=== PATIENT | female | born 1945 | race African-American/Black ===

== ENCOUNTER 2016-09-26 14:50 | Emergency (ER) | payer MEDICARE, OTHER ==
[~2016-09-26] VITALS: Ht 157.5 cm; Wt 45.0 kg
[~2016-09-26 14:50] MED LIST: AMLO5 PO; BENA20 PO; KCL20 PO; ROBA750T3 PO
[2016-09-26 14:52] VITALS: BP 148/73; PULSE 103; RESP 14; TEMP 98.7; O2SAT 97
[2016-09-26] MEDS ORDERED: CLOT1CRE6 TOPICAL (17:39)
--- NOTE | 2016-09-26 17:39 | PD ---
HPI Chief Complaint: Skin Problem Time Seen by Provider: 17:22 Travel History International Travel<30 days: No Contact w/Intl Traveler<30days: No Traveled to known affect area: No History of Present Illness HPI 71-year-old female presents to the emergency room for evaluation of skin rash to bilateral lower feet. Patient states started about 2 weeks ago. It is occasionally itchy. Mildly tender to palpation. She has not been applying anything to the area. She denies history of diabetes. States she takes her blood sugars almost daily and usually range between 90 and low 100s. Occasionally high 100s. She is not on any medication for diabetes. PFSH Past Medical History Arthritis: Yes Asthma: No Autoimmune Disease: No Blood Disorders: No Anxiety: No Depression: Yes Heart Rhythm Problems: No Cancer: No Cardiovascular Problems: No High Cholesterol: No Chemotherapy: No Chest Pain: No Congestive Heart Failure: No COPD: No Cerebrovascular Accident: No Diabetes: No Diminished Hearing: No Endocrine: No Gastrointestinal Disorders: No GERD: No Glaucoma: No Genitourinary: No Headaches: Yes Hepatitis: No Hiatal Hernia: No Hypertension: Yes Immune Disorder: No Kidney Stones: No Musculoskeletal: No Neurologic: No Psychiatric: No Respiratory: No Migraines: No Myocardial Infarction: No Radiation Therapy: No Renal Failure: No Seizures: No Sickle Cell Disease: No Sleep Apnea: No Thyroid Disease: No Ulcer: No : 8 Para: 5 Tubal Ligation: Yes Past Surgical History Abdominal Surgery: No AICD: No Appendectomy: No Arteriovenous Shunt: No Cardiac Surgery: No Cholecystectomy: No Ear Surgery: No Endocrine Surgery: No Eye Surgery: No Genitourinary Surgery: Yes (BOWEL OBSTRUCTION) Gynecologic Surgery: Yes (TOTAL ABDOMINAL HYSTERECTOMY) Hysterectomy: Yes (PARTIAL) Insulin Pump: No Joint Replacement: No Neurologic Surgery: No Oral Surgery: No Pacemaker: No Thoracic Surgery: No Other Surgery: Yes Social History Alcohol Use: No Tobacco Use: Yes (1/2 PER DAY) Substance Use: No Allergies-Medications (Allergen,Severity, Reaction): Coded Allergies: No Known Allergies (Verified , 09/26/16) Reported Meds & Prescriptions Reported Meds & Active Scripts Active Robaxin-750 (Methocarbamol) 750 Mg Tab 750 Mg PO QID PRN FOR PAIN Reported Kcl 20 Meq Tab (Potassium Chloride) 20 Meq Tabcr 20 Meq PO BID Lotensin 20 mg (Benazepril HCl) 20 Mg Tab 20 Mg PO DAILY Norvasc (Amlodipine Besylate) 5 Mg Tab 5 Mg PO DAILY Review of Systems Except as stated in HPI: all other systems reviewed are Neg Physical Exam Narrative GENERAL: Well-nourished, well-developed female in no acute distress. Afebrile. Ambulatory. SKIN: Warm and dry. Round, scaly rash to bilateral plantar feet. No impetiginization. No erythema or drainage. Mildly tender to palpation. Distal sensation intact. Less than 2 second capillary refill distally in the feet. HEAD: Normocephalic. EYES: No scleral icterus. No injection or drainage. NECK: Supple, trachea midline. No JVD or lymphadenopathy. Data Data Last Documented VS Vital Signs Date Time Temp Pulse Resp B/P Pulse Ox O2 Delivery O2 Flow Rate FiO2 09/26/16 14:52 98.7 103 14 148/73 97 Room Air MDM Medical Decision Making Medical Screen Exam Complete: Yes Emergency Medical Condition: Yes Medical Record Reviewed: Yes Differential Diagnosis Tinea pedis versus diabetic foot ulcer versus psoriasis Narrative Course 71-year-old female presents to the emergency room for evaluation of bilateral round, scaly plaques to the plantar surfaces of her feet. Patient denies being diabetic. There is no impetiginization, erythema, or drainage. History and physical exam consistent with tinea pedis. Patient discharged with clotrimazole and told to follow up with mud car worker for long-term management and recheck of lesions; she also needs her nails trimmed. Patient understands and agrees to this plan. Diagnosis Primary Impression: Tinea pedis Qualified Code: B35.3 - Tinea pedis of both feet Referrals: Mustapha Chester DPM Patient Instructions: General Instructions, Tinea Pedis (ED) Additional Instructions: Rest and drink plenty of fluids. Apply clotrimazole as directed for one week. Follow-up with a primary care physician. Return to the emergency room for worsening symptoms. Med/Other Pt SpecificInfo: Prescription(s) given Disposition: 01 DISCHARGE HOME Condition: Stable Eufemia Quispe Sep 26, 2016 17:39
[2016-09-26 17:43] VITALS: PULSE 84
[2016-10-10] MEDS ORDERED: AMLO5 PO (10:41)
[2016-10-10] MEDS ORDERED: LOTE20TA PO (10:41)
[2016-10-10] MEDS ORDERED: ROBA750T PO (10:41)
[2016-10-10] MEDS ORDERED: POTA10TA8 PO (10:41)
== END 2016-09-26 17:55 | disposition home or self-care (01) ==
LOC: NEPB 14:50
DX: B35.3 Tinea pedis (principal); I10 Essential (primary) hypertension; Z72.0 Tobacco use; Z87.39 Personal history of other diseases of the musculoskeletal system and connective tissue; Z86.59 Personal history of other mental and behavioral disorders
CPT/HCPCS: 99282

== ENCOUNTER 2017-04-26 23:49 | Emergency (ER) | payer MEDICARE, OTHER ==
[~2017-04-26 23:49] MED LIST changes: -BENA20 PO; +CLOT1CRE6 TOPICAL; -KCL20 PO; +LOTE20TA PO; +POTA10TA8 PO; +ROBA750T PO; -ROBA750T3 PO
[2017-04-26 23:51] VITALS: BP 125/67; PULSE 92; RESP 16; TEMP 98.4; O2SAT 97
[2017-04-27] MEDS ORDERED: HYDR-2376 PO (00:24)
[2017-04-27] MEDS ORDERED: SOMA350T PO (00:24)
[2017-04-27 02:24] LABS: BLOOD, URINE NEG (NEG); COMMENT (UR) CULT NOT INDICATED; CULTURE IF INDICATED CULT NOT INDICATED; GLUCOSE,URINE NEG (NEG); HYALINE CAST, URINE 21 /lpf (RARE); KETONE, URINE TRACE mg/dL (NEG); MUCUS URINE FEW /lpf (OCC); NITRITE,URINE NEG (NEG); SQUAMOUS EPITHELIAL CELL URINE 1 /hpf (0-5); URINE COLOR YELLOW (YELLW/STRAW)
[2017-04-27 02:24] LABS: HEMATOCRIT 32.6 % (35.0-46.0); MEAN CELL VOLUME 86.6 FL (80.0-100.0); MEAN CORPUSCULAR HEMOGLOBIN 28.2 PG (27.0-34.0); MEAN CORPUSCULAR HGB CONC 32.5 % (32.0-36.0); PLATELET COUNT 385 TH/MM3 (150-450); RED BLOOD COUNT 3.77 MIL/MM3 (4.00-5.30); RED CELL DISTRIBUTION WIDTH 17.9 % (11.6-17.2)
[2017-04-27 02:25] LABS: HEMO FLAGS AUTO DIFF
--- NOTE | 2017-04-27 02:35 | PD ---
HPI Chief Complaint: Complaint Time Seen by Provider: 00:22 Travel History International Travel<30 days: No Contact w/Intl Traveler<30days: No Traveled to known affect area: No History of Present Illness HPI The patient 72 years old. She arrives complaining of difficulty urinating and decreased urination overall. She bulging/mass-type protrusion from the vaginal introitus seems to come and go. It is painless. She also complains of a umbilical hernia which is reducible. No vomiting. No fever. Severity moderate. Timing is intermittent. PFSH Past Medical History Anemia: Yes Arthritis: Yes Asthma: No Autoimmune Disease: No Blood Disorders: No Anxiety: No Depression: Yes Heart Rhythm Problems: No Cancer: No Cardiovascular Problems: No High Cholesterol: Yes Chemotherapy: No Chest Pain: No Congestive Heart Failure: No COPD: No Cerebrovascular Accident: No Diabetes: No Diminished Hearing: No Endocrine: No Gastrointestinal Disorders: No GERD: No Glaucoma: No Genitourinary: No Headaches: Yes Hepatitis: No Hiatal Hernia: No Hypertension: Yes Immune Disorder: No Kidney Stones: No Musculoskeletal: No Neurologic: No Psychiatric: No Respiratory: No Immunizations Current: Yes Migraines: No Myocardial Infarction: No Radiation Therapy: No Renal Failure: No Seizures: No Sickle Cell Disease: No Sleep Apnea: No Thyroid Disease: No Ulcer: No Tetanus Vaccination: Unknown ?: Not : 8 Para: 5 Tubal Ligation: Yes Past Surgical History Abdominal Surgery: No AICD: No Appendectomy: No Arteriovenous Shunt: No Cardiac Surgery: No Cholecystectomy: No Ear Surgery: No Endocrine Surgery: No Eye Surgery: No Genitourinary Surgery: Yes (BOWEL OBSTRUCTION) Gynecologic Surgery: Yes (TOTAL ABDOMINAL HYSTERECTOMY) Hysterectomy: Yes (PARTIAL) Insulin Pump: No Joint Replacement: No Neurologic Surgery: No Oral Surgery: No Pacemaker: No Thoracic Surgery: No Other Surgery: Yes Social History Alcohol Use: No Tobacco Use: Yes (1/2 PER DAY) Substance Use: No Allergies-Medications (Allergen,Severity, Reaction): Coded Allergies: No Known Allergies (Verified , 04/27/17) Reported Meds & Prescriptions Reported Meds & Active Scripts Active Clotrimazole Anti-Fungal Topical (Clotrimazole) 1% Cream 1 Applic TOPICAL Q12HR Reported Hydrocodone-Acetaminophen 7.5-300 Mg Tab 1 Tab PO Q4H PRN Soma (Carisoprodol) 350 Mg Tab 350 Mg PO BID PRN Norvasc (Amlodipine Besylate) 5 Mg Tab 5 Mg PO DAILY Review of Systems Except as stated in HPI: all other systems reviewed are Neg Physical Exam Narrative GENERAL: 72-year-old female well-nourished developed PELVIC: External genitalia normal. Vaginal mucosa appears normal. There does appear to be minimal protrusion of the vaginal mucosa concern for possible urinary bladder prolapse. SKIN: Focused skin assessment warm/dry. HEAD: Atraumatic. Normocephalic. EYES: Pupils equal and round. No scleral icterus. No injection or drainage. ENT: No nasal bleeding or discharge. Mucous membranes pink and moist. NECK: Trachea midline. No JVD. CARDIOVASCULAR: Regular rate and rhythm. No murmur appreciated. RESPIRATORY: No accessory muscle use. Clear to auscultation. Breath sounds equal bilaterally. GASTROINTESTINAL: There is a reducible umbilical hernia. The abdomen is soft generally MUSCULOSKELETAL: No obvious deformities. No clubbing. No cyanosis. No edema. NEUROLOGICAL: Awake and alert. No obvious cranial nerve deficits. Motor grossly within normal limits. Normal speech. PSYCHIATRIC: Appropriate mood and affect; insight and judgment normal. Data Data Last Documented VS Vital Signs Date Time Temp Pulse Resp B/P Pulse Ox O2 Delivery O2 Flow Rate FiO2 04/27/17 00:16 18 04/26/17 23:51 98.4 92 125/67 97 Room Air Vital signs reviewed Orders Urinalysis - C+S If Indicated (04/27/17 00:56) Complete Blood Count With Diff (04/27/17 01:49) Basic Metabolic Panel (Bmp) (04/27/17 01:49) Potassium Chloride (Kcl) (04/27/17 03:15) Labs Laboratory Tests Test 04/27/17 04/27/17 01:30 01:50 Urine Color YELLOW Urine Turbidity CLEAR Urine pH 6.0 Urine Specific [place] 1.037 Urine Protein 30 mg/dL Urine Glucose (UA) NEG mg/dL Urine Ketones TRACE mg/dL Urine Occult Blood NEG Urine Nitrite NEG Urine Bilirubin NEG Urine Urobilinogen 2.0 MG/DL Urine Leukocyte Esterase NEG Urine RBC 3 /hpf Urine WBC 1 /hpf Urine Squamous Epithelial 1 /hpf Cells Urine Hyaline Casts 21 /lpf Urine Mucus FEW /lpf Microscopic Urinalysis Comment CULT NOT INDICATED White Blood Count 10.0 TH/MM3 Red Blood Count 3.77 MIL/MM3 Hemoglobin 10.6 GM/DL Hematocrit 32.6 % Mean Corpuscular Volume 86.6 FL Mean Corpuscular Hemoglobin 28.2 PG Mean Corpuscular Hemoglobin 32.5 % Concent Red Cell Distribution Width 17.9 % Platelet Count 385 TH/MM3 Mean Platelet Volume 9.6 FL Neutrophils (%) (Auto) % Lymphocytes (%) (Auto) % Monocytes (%) (Auto) % Eosinophils (%) (Auto) % Basophils (%) (Auto) % Neutrophils # (Auto) TH/MM3 Lymphocytes # (Auto) TH/MM3 Monocytes # (Auto) TH/MM3 Eosinophils # (Auto) TH/MM3 Basophils # (Auto) TH/MM3 CBC Comment AUTO DIFF Sodium Level 145 MEQ/L Potassium Level 2.7 MEQ/L Chloride Level 107 MEQ/L Carbon Dioxide Level 31.5 MEQ/L Anion Gap 7 MEQ/L Blood Urea Nitrogen 12 MG/DL Creatinine 0.97 MG/DL Estimat Glomerular Filtration 69 ML/MIN Rate Random Glucose 90 MG/DL Calcium Level 9.1 MG/DL [facility] Medical Decision Making Medical Screen Exam Complete: Yes Emergency Medical Condition: Yes Medical Record Reviewed: Yes Differential Diagnosis Bladder prolapse, UTI, renal failure, malignancy Narrative Course CBC & BMP Diagram 04/27/17 01:50 UA: no UTI 310AM: pt resting comfortably, outpatient follow up plan discussed, pt agreeable with plan, all questions answered Diagnosis Primary Impression: Female bladder prolapse Additional Impression: Hypokalemia Referrals: Skye Christy MD 2 days Additional Instructions: You have a choice when it comes to health care, and we are glad that you chose [facility]. Hopefully, we have met your expectations on today's visit. You are welcome to return to [facility] at any time, as we are committed to meeting the health care needs of our community. Med/Other Pt SpecificInfo: No Change to Meds Disposition: DISCHARGE HOME Condition: Stable Ke Christopher MD Apr 27, 2017 02:35
[2017-04-27 02:58] LABS: BICARBONATE 31.5 MEQ/L (21.0-32.0)
[2017-04-27 03:01] LABS: POTASSIUM 2.7 MEQ/L (3.5-5.1)
[2017-04-27 03:08] LABS: BANDS 3 % (0-6); BASOPHILS 3 % (0-2); EOSINOPHILS 8 % (0-4); NEUTROPHIL # MANUAL DIFF 6.3 TH/MM3 (1.8-7.7); POLYS (SEG NEUTROPHILS) 60 % (16-70); SCAN/DIFF FINAL DIFF MANUAL; WBC DIFF SAMPLE 100
[2017-04-27 03:09] LABS: PLATELET ESTIMATE SMEAR NORMAL (NORMAL); PLATELET MORPHOLOGY NORMAL (NORMAL)
[2017-04-27] MEDS ORDERED: POTASSIUM CHLORIDE 20 MEQ CONTROLLED RELEASE TAB PO ONE (03:15)
== END 2017-04-27 03:51 | disposition home or self-care (01) ==
LOC: NEPE 23:49
DX: N81.10 Cystocele, unspecified (principal); E87.6 Hypokalemia; F17.210 Nicotine dependence, cigarettes, uncomplicated; I10 Essential (primary) hypertension; E78.00 Pure hypercholesterolemia, unspecified
CPT/HCPCS: 80048; 81001; 85007; 85027; 99283

== ENCOUNTER 2017-12-03 11:59 | Emergency (ER) | payer MEDICARE, OTHER ==
[~2017-12-03] VITALS: Ht 157.5 cm; Wt 48.0 kg
[~2017-12-03 11:59] MED LIST changes: +HYDR-2376 PO; -LOTE20TA PO; -POTA10TA8 PO; -ROBA750T PO; +SOMA350T PO
[2017-12-03 12:02] VITALS: BP 178/82; PULSE 85; RESP 20; TEMP 99; O2SAT 100
[2017-12-03] MEDS ORDERED: ACETAMINOPHEN/HYDROcodone 325 MG/5 MG TAB PO ONE (14:00)
--- NOTE | 2017-12-03 14:24 | RADRPT ---
EXAM DATE/TIME: 12/03/2017 14:10 [place] COMPARISON: No previous studies available for comparison. INDICATIONS : Pain from impact with object. MEDICAL HISTORY : None. SURGICAL HISTORY : None. ENCOUNTER: Initial ACUITY: 2 weeks PAIN SCORE: 5/10 LOCATION: Right lateral foot. FINDINGS: There are mildly displaced fractures through the distal second and third metatarsals. Bones osteopeni c. Hallux valgus deformity present. CONCLUSION: 1. Mildly displaced fractures distal second and third metatarsals. Fractures appear subacute. Hallux valgus. Osteopenia. Christiano Ye MD on December 03, 2017 at 14:21 Board Certified Radiologist. This report was verified electronically.
--- NOTE | 2017-12-03 14:30 | PD ---
HPI Chief Complaint: Injury Time Seen by Provider: 13:46 Travel History International Travel<30 days: No Contact w/Intl Traveler<30days: No Traveled to known affect area: No History of Present Illness HPI 72-year-old female arrives with complaint of right foot pain. Patient reports knocking the foot against a piece of wood about 1 week prior. Since then she has had constant pain worse with ambulation and palpation. No additional injury to report. PFSH Past Medical History Anemia: Yes Arthritis: Yes Asthma: No Autoimmune Disease: No Blood Disorders: No Anxiety: No Depression: Yes Heart Rhythm Problems: No Cancer: No Cardiovascular Problems: No High Cholesterol: Yes Chemotherapy: No Chest Pain: No Congestive Heart Failure: No COPD: No Cerebrovascular Accident: No Diabetes: No Diminished Hearing: No Endocrine: No Gastrointestinal Disorders: No GERD: No Glaucoma: No Genitourinary: No Headaches: Yes Hepatitis: No Hiatal Hernia: No Hypertension: Yes Immune Disorder: No Kidney Stones: No Musculoskeletal: No Neurologic: No Psychiatric: No Respiratory: No Immunizations Current: Yes Migraines: No Myocardial Infarction: No Radiation Therapy: No Renal Failure: No Seizures: No Sickle Cell Disease: No Sleep Apnea: No Thyroid Disease: No Ulcer: No : 8 Para: 5 Tubal Ligation: Yes Past Surgical History Abdominal Surgery: No AICD: No Appendectomy: No Arteriovenous Shunt: No Cardiac Surgery: No Cholecystectomy: No Ear Surgery: No Endocrine Surgery: No Eye Surgery: No Genitourinary Surgery: Yes (BOWEL OBSTRUCTION) Gynecologic Surgery: Yes (TOTAL ABDOMINAL HYSTERECTOMY) Hysterectomy: Yes (PARTIAL) Insulin Pump: No Joint Replacement: No Neurologic Surgery: No Oral Surgery: No Pacemaker: No Thoracic Surgery: No Other Surgery: Yes Social History Alcohol Use: No Tobacco Use: Yes (1/2 PER DAY) Substance Use: No Allergies-Medications (Allergen,Severity, Reaction): Coded Allergies: No Known Allergies (Verified Adverse Reaction, Unknown, 12/03/17) Reported Meds & Prescriptions Reported Meds & Active Scripts Active Hydrocodone-Acetaminophen 7.5-300 Mg Tab 1 Tab PO Q4H PRN Clotrimazole Anti-Fungal Topical (Clotrimazole) 1% Cream 1 Applic TOPICAL Q12HR Reported Soma (Carisoprodol) 350 Mg Tab 350 Mg PO BID PRN Norvasc (Amlodipine Besylate) 5 Mg Tab 5 Mg PO DAILY Review of Systems General / Constitutional: No: Fever HENT: No: Sore Throat Respiratory: No: Other Gastrointestinal: No: Loss of Appetite Genitourinary: No: Incontinence Physical Exam Narrative GENERAL: 72-year-old female pleasant well-nourished Vital Signs Date Time Temp Pulse Resp B/P (MAP) Pulse Ox O2 Delivery O2 Flow Rate FiO2 12/03/17 12:02 99.0 85 20 178/82 (114) 100 SKIN: Warm and dry. HEAD: Normocephalic. EYES: No scleral icterus. No injection or drainage. NECK: Supple, trachea midline. No JVD or lymphadenopathy. CARDIOVASCULAR: There is a palpable dorsalis pedis pulse in the right and 2+ in the left dorsalis pedis RESPIRATORY: Breath sounds equal bilaterally. No accessory muscle use. GASTROINTESTINAL: Abdomen soft, non-tender, nondistended. MUSCULOSKELETAL: Tenderness palpation on the dorsal aspect of the right foot towards the heads of the second third and fourth metatarsals. No tenderness about the malleoli. BACK: Nontender without obvious deformity. No CVA tenderness. Data Data Last Documented VS Vital Signs Date Time Temp Pulse Resp B/P (MAP) Pulse Ox O2 Delivery O2 Flow Rate FiO2 12/03/17 12:02 99.0 85 20 178/82 (114) 100 Orders Orders Foot, Complete ([id number]) (12/03/17 14:00) Ice/Cold Pack (12/03/17 14:00) Acetamin-Hydrocod 325-5 Mg ([place] 5-325 (12/03/17 14:00) Ed Discharge Order (12/03/17 14:18) Support Splint (12/03/17 14:18) MDM Medical Decision Making Medical Screen Exam Complete: Yes Emergency Medical Condition: Yes Medical Record Reviewed: Yes Differential Diagnosis Fracture, contusion, abrasion, and peripheral artery disease Narrative Course Foot x-ray shows fracture of the metatarsal heads 2 and 3 The patient will go home with hard sole show. she will follow-up with podiatry, Dr Reddy or her architecture drafter this week. Diagnosis Primary Impression: Metatarsal bone fracture Qualified Codes: S92.301A - Fracture of unspecified metatarsal bone(s), right foot, initial encounter for closed fracture Referrals: Peg Reddy DPM 2 days Med/Other Pt SpecificInfo: Prescription(s) given Scripts Hydrocodone-Acetaminophen (Hydrocodone-Acetaminophen) 7.5-300 Mg Tab 1 TAB PO Q4H Y for PAIN, #10 TAB 0 Refills Prov: Ke Christopher MD 12/03/17 Disposition: 01 DISCHARGE HOME Condition: Stable Ke Christopher MD Dec 03, 2017 14:30
[2017-12-03] MEDS ORDERED: HYDR-2376 PO (14:37)
== END 2017-12-03 14:50 | disposition home or self-care (01) ==
LOC: NEPD 11:59
DX: S92.321A Displaced fracture of second metatarsal bone, right foot, initial encounter for closed fracture (principal); S92.331A Displaced fracture of third metatarsal bone, right foot, initial encounter for closed fracture; W22.8XXA Striking against or struck by other objects, initial encounter
CPT/HCPCS: 73630; 99283; L3260

== ENCOUNTER 2018-04-24 19:12 | Observation (INO) ==
[2018-04-24] MEDS ORDERED: Azithromycin Inj 500 MG in Sodium Chlor 0.9% Inj 250 ML IV.SIG ONE (20:37)
[2018-04-24] MEDS ORDERED: Sodium Chlor 0.9% Inj 500 ML IV.SIG ONE (20:37)
--- NOTE | 2018-04-24 20:37 | ED ---
HPI General Chief complaint: Shortness of Breath/Dyspnea Stated complaint: SOB Time Seen by Provider: 04/24/18 20:20 Source: patient Limitations: no limitations History of Present Illness HPI narrative: The patient is a 73 year old female who presents to the [facility] emergency department with a history of shortness of breath that she reports is been progressively getting worse over the last 2 months. She reports that over the last 3 weeks she has had a cough that is been productive of white sputum. The patient reports that she does smoke between 2 and 5 cigarettes per day. She reports that her primary care physician has given her a pro-air inhaler, however it does not seem to help. She denies ever being diagnosed specifically with COPD or asthma. She reports having a diminished appetite associated with this. She reports having nausea and vomiting 2 this past week. She reports that a few days ago she had a fever with a T-max of 101. The patient reports that over the last 2 weeks she has had diarrhea on average 1 time per day. She denies having any blood in her stool or black or tarry stools. She denies having any lower extremity edema, calf pain, or erythema. She denies having any associated chest pain. She reports having a gassy sensation in her abdomen. On review of systems otherwise, the patient denies having any new neck pain (h/o arthritis with chronic neck and back pain) , urinary symptoms, or neurologic symptoms. Related Data Home Medications Medication Instructions Recorded Confirmed amlodipine [Norvasc] 5 mg PO DAILY 04/24/18 04/24/18 [id number]-[id number]-nmvf 1 cap PO Q4H PRN 04/24/18 04/24/18 [Fioricet] carisoprodol [Soma] 350 mg PO QID PRN 04/24/18 04/24/18 ferrous sulfate mg PO DAILY 04/24/18 hydrocodone-acetaminophen 1 tab PO Q4-6H PRN 04/24/18 04/24/18 Allergies Allergy/AdvReac Type Severity Reaction Status Date / Time No Known Allergies Allergy Verified 04/24/18 19:42 Review of Systems ROS Unobtainable All other systems reviewed negative except as stated in HPI [facility] Medical History Medical History Anemia (Acute) COPD (chronic obstructive pulmonary disease) (Acute) History of hysterectomy (Acute) Hypertension (Acute) Surgical History Surgical History History of hernia surgery (Acute) Social History Social History Substance History: No History of Abuse Smoking Status: Current every day smoker Tobacco Type: Cigarettes Cigarettes Per Day: 5 How Often Do You Have a Drink Containing Alcohol: Monthly or less Recent Travel in [facility] within the Last 8 Weeks: No Recent Out of Country Travel within the Last 8 Weeks: No Immunization History Tetanus Immunization: Unsure Hx Influenza Vaccine This Season: No Exam Const General: cooperative, no acute distress and well developed Nutritional Appearance: thin Orientation: alert, awake and oriented x3 HENMT Head: normocephalic and atraumatic Nose: no nasal discharge and no epistaxis Mouth: moist mucous membranes Throat: posterior oropharynx normal and uvula midline Eyes Sclera: normal sclerae Pupils: PERRL Neck Neck: no meningeal signs, trachea midline and no JVD Resp Effort & Inspection: no use of accessory muscles Auscultation: other (No wheezes, rhonchi, or crackles are audible, however the patient does have diminished breath sounds in the right lower lung base.) Cardio Rate: regular rate Rhythm: regular rhythm Heart Sounds: no gallops, no murmurs and no rubs GI Inspection: non-distended Palpation: soft, no hepatosplenomegaly, no guarding, not rigid and nontender Auscultation: normal bowel sounds Back/Spine/Pelvis Back: no CVA tenderness Skin General: dry skin (warm) Neuro General: alert and awake Cranial Nerves: other (No facial asymmetry) Speech: speech normal Motor: no movement abnormalities noted Extrem General: normal to inspection (No calf tenderness on palpation.), no clubbing, no cyanosis and no edema Psych Mood: congruent mood Affect: normal affect Judgment: judgment good Course Initial Documented Vital Signs Temperature 98.8 F 04/24/18 19:42 Pulse Rate 81 04/24/18 19:42 Respiratory Rate 24 04/24/18 19:42 Blood Pressure 161/84 H 04/24/18 19:42 Pulse Oximetry 96 04/24/18 19:42 Last Documented Vital Signs Temperature 98.8 F 04/24/18 19:42 Pulse Rate 77 04/24/18 23:11 Respiratory Rate 18 04/24/18 23:11 Blood Pressure 177/94 H 04/24/18 23:11 Pulse Oximetry 99 04/24/18 23:11 Medical Decision Making MDM Narrative Medical decision making narrative: During the course of the patient's emergency department visit, the patient's history, examination, and differential diagnosis were reviewed with the patient. The patient was placed on a monitor tech with oximetry and frequent blood pressure monitoring. The patient had IV access obtained and blood work sent for analysis. A diagnostic workup was started regarding the patient's shortness of breath, cough, and fever. The patient was initially provided normal saline at 500 mL bolus 1, Zofran ODT , Rocephin 1 g IV, Zithromax 500 IV. Laboratory studies are remarkable for a white count of 7, platelets 429, monocytosis at 11.7, hemoglobin 9.9 which is stable compared to her baseline level of anemia, PT 10.4, PTT 26.4, CMP is remarkable chemistries remarkable for a troponin I of less than 0.02, CPK 100, total bilirubin 0.1, potassium 3.4 , GFR of 81, chloride 109, alk phos 144, albumin 3.3, ALT 8. Urinalysis shows no acute abnormality. Chest x-ray shows no acute findings, tortuous aorta, CTA to rule out PE given the patient's persistent dyspnea on exertion is negative for PE, however a noncalcified 6 mm nodule in the right middle lobe of the lung is noted, recommend noncontrast chest CT for monitoring in 6 months, cardiomegaly with no pulmonary edema, severe underlying emphysema, coronary artery calcifications are also noted. Given the patient's dyspnea on exertion and risk factors for coronary artery disease the patient will be admitted to the chest pain center for rule out serial cardiac enzyme protocol and consideration of stress testing. As the patient is a smoker and no doubt has some underlying component of COPD based on the CT scan findings the patient will be treated with an antibiotic for bronchitis as her symptoms with cough have been ongoing for 3 weeks. The patient is provided a prescription for Zithromax. I explained that further testing and/ or monitoring is indicated based on the patient's history, examination, and/ or laboratory findings. Therefore, I recommended admission for additional evaluation. The patient expressed understanding and was agreeable with this plan. The patient was admitted to the hospital in stable condition and sent to a bed under the care of the [facility]. Differential Diagnosis Differential Diagnosis: Acute coronary syndrome, versus COPD exacerbation, versus bronchitis, versus pneumonia, versus new onset congestive heart failure, versus pulmonary embolism, versus symptomatic anemia Medical Records Medical records reviewed: Yes I reviewed the patient's medical records. Lab Data Lab results reviewed: Yes I reviewed the patient's lab results. Result diagrams: 04/24/18 21:09 04/24/18 21:09 Lab Results 04/24/18 04/24/18 04/24/18 Range/Units 21:09 21:09 21:09 WBC 7.0 (4.0-11.0) th/mm3 RBC 3.66 L (4.00-5.30) mil/mm3 Hgb 9.9 L (11.6-15.3) gm/dL Hct 31.0 L (35.0-46.0) % MCV 84.7 (80.0-100.0) fL MCH 27.1 (27.0-34.0) pg MCHC 32.0 (32.0-36.0) % RDW 20.8 H (11.6-17.2) % Plt Count 429 (150-450) th/mm3 MPV 9.0 (7.0-11.0) fL Neut % (Auto) 46.4 (16.0-70.0) % Lymph % (Auto) 37.6 (9.0-44.0) % [place] % (Auto) 11.7 H (0.0-8.0) % Eos % (Auto) 3.0 (0.0-4.0) % Baso % (Auto) 1.3 (0.0-2.0) % Neut # (Auto) 3.3 (1.8-7.7) th/mm3 Lymph # (Auto) 2.6 (1.0-4.8) th/mm3 [place] # (Auto) 0.8 (0.0-0.9) th/mm3 Eos # (Auto) 0.2 (0.0-0.4) th/mm3 Baso # (Auto) 0.1 (0.0-0.2) th/mm3 WBC Differential . Differential Comment Auto diff final PT 10.4 (9.8-11.6) sec INR 1.0 Ratio APTT 26.4 (24.3-30.1) sec Sodium 142 (136-145) meq/L Potassium 3.4 L (3.5-5.1) meq/L Chloride 109 H (98-107) meq/L Carbon Dioxide 27.4 (21.0-32.0) meq/L Anion Gap 6 (5-15) meq/L BUN 13 (7-18) mg/dL Creatinine 0.84 (0.50-1.00) mg/dL Estimated GFR 81 L (>89) mL/min Random Glucose 78 (74-106) mg/dL Lactic Acid (0.4-2.0) mmol/L Calcium 8.8 (8.5-10.1) mg/dL Magnesium 2.1 (1.5-2.5) mg/dL Total Bilirubin 0.1 L (0.2-1.0) mg/dL AST 15 (15-37) U/L ALT 8 L (10-53) U/L Alkaline Phosphatase 144 H (45-117) U/L Total Creatine Kinase 100 (26-192) U/L Troponin I Less than 0.02 L (0.02-0.05) ng/mL B-Natriuretic Peptide (0-100) pg/mL Total Protein 7.9 (6.4-8.2) g/dL Albumin 3.3 L (3.4-5.0) g/dL Urine Color (Yellw/Straw) Urine Clarity (Clear) Urine pH (5.0-8.5) Ur Specific [place] (1.002-1.035) Urine Protein (Neg-Trace) mg/dL Urine Glucose (UA) (Negative) mg/dL Urine Ketones (Negative) mg/dL Urine Occult Blood (Negative) Urine Nitrate (Negative) Urine Bilirubin (Negative) Urine Urobilinogen (Less than 2) mg/dL Ur Leukocyte Esterase (Negative) Urine RBC (0-3) /hpf Urine WBC (0-5) /hpf Ur Squamous Epith Cells (0-5) /hpf Micro UA Comment Urine Culture Comments 04/24/18 04/24/18 04/24/18 Range/Units 21:09 21:09 21:25 WBC (4.0-11.0) th/mm3 RBC (4.00-5.30) mil/mm3 Hgb (11.6-15.3) gm/dL Hct (35.0-46.0) % MCV (80.0-100.0) fL MCH (27.0-34.0) pg MCHC (32.0-36.0) % RDW (11.6-17.2) % Plt Count (150-450) th/mm3 MPV (7.0-11.0) fL Neut % (Auto) (16.0-70.0) % Lymph % (Auto) (9.0-44.0) % [place] % (Auto) (0.0-8.0) % Eos % (Auto) (0.0-4.0) % Baso % (Auto) (0.0-2.0) % Neut # (Auto) (1.8-7.7) th/mm3 Lymph # (Auto) (1.0-4.8) th/mm3 [place] # (Auto) (0.0-0.9) th/mm3 Eos # (Auto) (0.0-0.4) th/mm3 Baso # (Auto) (0.0-0.2) th/mm3 WBC Differential Differential Comment PT (9.8-11.6) sec INR Ratio APTT (24.3-30.1) sec Sodium (136-145) meq/L Potassium (3.5-5.1) meq/L Chloride (98-107) meq/L Carbon Dioxide (21.0-32.0) meq/L Anion Gap (5-15) meq/L BUN (7-18) mg/dL Creatinine (0.50-1.00) mg/dL Estimated GFR (>89) mL/min Random Glucose (74-106) mg/dL Lactic Acid 1.2 (0.4-2.0) mmol/L Calcium (8.5-10.1) mg/dL Magnesium (1.5-2.5) mg/dL Total Bilirubin (0.2-1.0) mg/dL AST (15-37) U/L ALT (10-53) U/L Alkaline Phosphatase (45-117) U/L Total Creatine Kinase (26-192) U/L Troponin I (0.02-0.05) ng/mL B-Natriuretic Peptide 84 (0-100) pg/mL Total Protein (6.4-8.2) g/dL Albumin (3.4-5.0) g/dL Urine Color Yellow (Yellw/Straw) Urine Clarity Clear (Clear) Urine pH 6.0 (5.0-8.5) Ur Specific [place] 1.026 (1.002-1.035) Urine Protein Negative (Neg-Trace) mg/dL Urine Glucose (UA) Negative (Negative) mg/dL Urine Ketones Negative (Negative) mg/dL Urine Occult Blood Small H (Negative) Urine Nitrate Negative (Negative) Urine Bilirubin Negative (Negative) Urine Urobilinogen Less than 2 (Less than 2) mg/dL Ur Leukocyte Esterase Negative (Negative) Urine RBC 1 (0-3) /hpf Urine WBC 2 (0-5) /hpf Ur Squamous Epith Cells 1 (0-5) /hpf Micro UA Comment Culture not ind Urine Culture Comments Culture not ind Imaging Data Radiologist's impression: Chest X-Ray 04/24/18 20:37 CONCLUSION: No acute findings. Tortuous aorta. Chest CTA 04/24/18 22:46 CONCLUSION: 1. No evidence of pulmonary embolism. 2. Noncalcified 6 mm nodule in the right middle lobe. The patient is at high risk and a follow-up noncontrast chest CT is recommended in 6 months according to guidelines. 3. Cardiomegaly with no pulmonary edema. 4. Severe underlying emphysema. 5. Coronary artery calcifications. ECG Data Attestation: I personally reviewed and interpreted this ECG as follows: Interpretation: The patient had an EKG done on arrival. The patient's EKG reveals a sinus rhythm heart rate of 73, QRS duration is 76 ms, QTC [address] segment elevation is noted. T waves are inverted in V1. Discharge Plan Discharge Disposition Patient Disposition: 30 Still Patient Discharge Details Diagnosis: Exertional shortness of breath, Chest pain, rule out acute myocardial infarction Physicians Team ED Provider: Zeinab Scales Primary Care Provider: UNKNOWN, Attending Provider: Ana Del Cid Discharge Interventions Interventions: Vital Signs Last Done: 04/24/18 23:11 Status ED Status: Admitted Observation Patient
--- NOTE | 2018-04-24 21:27 | XR ---
EXAM DATE: 04/24/2018 9:04 PM EDT AGE/SEX: 73 years / Female INDICATIONS: Shortness of breath. CLINICAL DATA: This is the patient's initial encounter. Patient reports that signs and symptoms have been present for 2 weeks and indicates a pain score of 0/10. MEDICAL/SURGICAL HISTORY: Hypertension. Chronic obstructive pulmonary disease. Smoker. None. COMPARISON: No prior exams available for comparison. FINDINGS: A single AP view of the chest demonstrates the lungs to be symmetrically aerated without evidence of mass, infiltrate or effusion. Aorta is tortuous. Mild scoliosis. CONCLUSION: No acute findings. Tortuous aorta. Electronically signed by: Christiano Ye MD 04/24/2018 9:26 PM EDT
[2018-04-24 21:30] LABS: Baso # (Auto) 0.1 th/mm3 (0.0-0.2); Baso % (Auto) 1.3 % (0.0-2.0); Eos # (Auto) 0.2 th/mm3 (0.0-0.4); Hemoglobin 9.9 gm/dL (11.6-15.3); Lymph # (Auto) 2.6 th/mm3 (1.0-4.8); Lymph % (Auto) 37.6 % (9.0-44.0); Mean Corpuscular Hemoglobin 27.1 pg (27.0-34.0); Mean Corpuscular Volume 84.7 fL (80.0-100.0); Mono # (Auto) 0.8 th/mm3 (0.0-0.9); Mono % (Auto) 11.7 % (0.0-8.0); Neut # (Auto) 3.3 th/mm3 (1.8-7.7); Neut % (Auto) 46.4 % (16.0-70.0); Platelet Count 429 th/mm3 (150-450); Red Blood Count 3.66 mil/mm3 (4.00-5.30); Red Cell Distribution Width 20.8 % (11.6-17.2)
[2018-04-24 21:45] LABS: Alanine Aminotransferase 8 U/L (10-53)
[2018-04-24 21:51] LABS: Bilirubin,Urine Negative (Negative); Clarity,Urine Clear (Clear); Color,Urine Yellow (Yellw/Straw); Glucose,Urine (UA) Negative (Negative); Leukocyte Esterase,Urine Negative (Negative); Nitrite,Urine Negative (Negative); Specific Gravity,Urine 1.026 (1.002-1.035); Squamous Epithelial Cell,Urine 1 /hpf (0-5)
[2018-04-24 22:02] LABS: Albumin 3.3 g/dL (3.4-5.0); Alkaline Phosphatase 144 U/L (45-117); Anion Gap 6 meq/L (5-15); Aspartate Aminotransferase 15 U/L (15-37); Blood Urea Nitrogen 13 mg/dL (7-18); Calcium 8.8 mg/dL (8.5-10.1); Carbon Dioxide 27.4 meq/L (21.0-32.0); Chloride 109 meq/L (98-107); Glomerular Filtration Rate 81 mL/min (>89); Glucose,Random 78 mg/dL (74-106); Magnesium 2.1 mg/dL (1.5-2.5); Sodium 142 meq/L (136-145); Total Protein 7.9 g/dL (6.4-8.2)
[2018-04-24 22:10] LABS: Creatine Kinase 100 U/L (26-192); Potassium 3.4 meq/L (3.5-5.1)
[2018-04-24 22:16] LABS: Activated Partial Thrombo Time 26.4 sec (24.3-30.1); Prothrombin Time 10.4 sec (9.8-11.6)
--- NOTE | 2018-04-24 23:38 | CT ---
EXAM DATE: 04/24/2018 11:27 PM EDT AGE/SEX: 73 years / Female INDICATIONS: Shortness of breath. CLINICAL DATA: This is the patient's initial encounter. Patient reports that signs and symptoms have been present for 1 day and indicates a pain score of 0/10. MEDICAL/SURGICAL HISTORY: Anemia. Chronic obstructive pulmonary disease. Hypertension. None. RADIATION DOSE: 5.67 CTDI (mGy) COMPARISON: No prior exams available for comparison. TECHNIQUE: Volumetric scanning was performed using a multi-row detector CT scanner during bolus infu nataly of 75 ml Omnipaque 350 (iohexol) nonionic water-soluble contrast as a single exam dose. The darlyn a was post processed with a variety of visualization algorithms including full volume maximum intensi ty projection and sliding thin slab reformation. Using automated exposure control and adjustment of t he mA and/or kV according to patient size, radiation dose was kept as low as reasonably achievable to obtain optimal diagnostic quality images. DICOM format image data is available electronically for r eview and comparison. FINDINGS: Pulmonary Arteries: No filling defects are seen in the pulmonary arteries out to the subsegmental ve ssels. The left and right pulmonary arteries are normal in diameter. Lung: No infiltrates seen. There is severe underlying emphysema with hyperinflation. There is a 6 mm noncalcified pulmonary nodule in the right middle lobe on image #64. Effusion: None. Mediastinum: No evidence of mediastinal or hilar adenopathy. Coronary artery calcifications are pres ent. There is mild cardiomegaly. Other: The axilla is unremarkable. CONCLUSION: 1. No evidence of pulmonary embolism. 2. Noncalcified 6 mm nodule in the right middle lobe. The patient is at high risk and a follow-up no ncontrast chest CT is recommended in 6 months according to guidelines. 3. Cardiomegaly with no pulmonary edema. 4. Severe underlying emphysema. 5. Coronary artery calcifications. Electronically signed by: Naif Mansfield MD 04/24/2018 11:37 PM EDT
[2018-04-25] MEDS ORDERED: Acetaminophen 325 MG Tablet PO ONE (00:05)
[2018-04-25 02:07] LABS: Creatine Kinase 81 U/L (26-192)
[2018-04-25 06:07] LABS: Creatine Kinase 68 U/L (26-192)
[2018-04-25] MEDS ORDERED: Acetaminophen 500 MG Tablet PO PRN (07:35)
--- NOTE | 2018-04-25 08:35 | P.HPCA ---
History of Present Illness Primary Care Physician: Dr. Gabriela Urban Chief Complaint: Dyspnea History of Present Illness: 73 year old female with history of hypertension, COPD, and current smoker presents to ER for further evaluation of nonexertional dyspnea. Onset 3 weeks. Intermittent fever, productive cough white sputum, no wheezing. Using proair inhaler without relief. Yesterday dyspnea so severe she did not want to exert herself, stating "I just wanted to rest." Denies any accompanying chest discomfort. No nausea, vomiting, or diaphoresis. Denies history of past bronchitis infections. Also would like to be evaluated for left scapula, left mid back, and left sided cervical pain. Onset 2 months ago, increased in severity. Made worse with movement and light touch over area. Reports completing a MRI recently and told to wear a cervical brace which gives some relief. No past cardiac testing. No known coronary artery disease. Family history noncontributory for early onset cardiovascular disease. - Diagnosis (1) Dyspnea, unspecified (2) Bronchitis (3) Tobacco use (4) Pulmonary nodule, right PMFSH - History History Provided By: Patient - Medical History Medical History: Medical History (Last Updated 04/25/18 @ 12:21 by CHERY Braun) History of hysterectomy (Chronic) Anemia COPD (chronic obstructive pulmonary disease) History of hysterectomy Hypertension Hypokalemia - Surgical History Surgical History: Surgical History (Last Reviewed 04/25/18 @ 12:21 by CHERY Braun) History of hernia surgery - Tobacco History Second Hand Smoke Exposure: Yes Tobacco Use In Past 30 Days: Yes Smoking Status: Current every day smoker Tobacco Type: Cigarettes Packs Per Day: 0.5 (0.5-1 pack daily) - Alcohol History How Often Do You Have a Drink Containing Alcohol: Monthly or less - Substance Use History Substance History: No History of Abuse - Travel History History of Recent Travel: No Recent Travel in the [place] Within the Last 8 Weeks: No Recent Travel Out of the Country Within the Last 8 Weeks: No - Immunization History Tetanus Immunization: Unsure Hx Influenza Vaccine This Season: No Medications and Allergies Active Medications: Active Medications Acetaminophen (Tylenol) 500 mg PO Q4H PRN PRN Reason: HEADACHE Hydrocodone Bitart/Acetaminophen ([place] 7.5/325) 1 tab PO Q4H PRN PRN Reason: PAIN SCALE 1 TO 7 Last Admin: 04/25/18 05:53 Dose: 1 tab Amlodipine Besylate (Norvasc) 5 mg PO DAILY IVANA Famotidine (Pepcid) 20 mg PO BID IVANA Nitroglycerin (Nitrostat Sl) 0.4 mg SL Q5M PRN PRN Reason: CHEST PAIN Ondansetron HCl (Zofran Odt) 4 mg PO Q6H PRN PRN Reason: NAUSEA Sodium Chloride (Ns Flush) 2 ml IV.FLUSH BID IVANA Sodium Chloride (Ns Flush) 2 ml IV.FLUSH PRN PRN PRN Reason: FLUSH AFTER USING IV ACCESS Allergies Allergy/AdvReac Type Severity Reaction Status Date / Time No Known Allergies Allergy Verified 04/24/18 19:42 Home Medications Medication Instructions Recorded Confirmed Type amlodipine [Norvasc] 5 mg PO DAILY 04/24/18 04/24/18 History klbvzfcstz-nplemsobqodnn-hilu 1 cap PO Q4H PRN 04/24/18 04/24/18 History [Fioricet] carisoprodol [Soma] 350 mg PO QID PRN 04/24/18 04/24/18 History ferrous sulfate mg PO DAILY 04/24/18 History hydrocodone-acetaminophen 1 tab PO Q4-6H PRN 04/24/18 04/24/18 History Exam Vital signs: Vital Signs 04/24/18 19:42 04/24/18 20:49 04/24/18 20:50 Temperature 98.8 F Pulse Rate 81 73 68 Respiratory Rate 24 18 18 Blood Pressure 161/84 H 161/96 H Pulse Oximetry 96 97 97 04/24/18 23:11 04/25/18 00:20 04/25/18 03:50 Temperature 98.6 F Pulse Rate 77 65 62 Respiratory Rate 18 18 16 Blood Pressure 177/94 H 169/90 H 150/70 H Pulse Oximetry 99 98 96 04/25/18 07:46 Temperature 97.7 F Pulse Rate 63 Respiratory Rate 20 Blood Pressure 148/72 H Pulse Oximetry 96 Intake & Output 04/24/18 04/25/18 04/25/18 18:59 06:59 18:59 Intake Total 850 / 850 Balance 850 / 850 Weight 41.787 kg Intake: IV 850 / 850 Azithromycin Inj 500 MG In NS 250 / 250 Inj 250 ML @ 250 mls/hr IV.SIG ONCE ONE Rx#:[id number] NS Inj 500 ML @ Wide Open IV. 500 / 500 SIG BOLUS ONE Rx#:[id number] Rocephin Inj 1,000 MG In NS Inj 100 / 100 100 ML @ 200 mls/hr IV.SIG ONCE ONE Rx#:[id number] Narrative: GENERAL: Alert WN, WD, NAD, pleasant -English, frail, thin female HEAD: NC, AT EYES: Sclera muddy, conjunctiva without injection, pupils equal and round ENT: Mucous membranes pink and moist, poor dentition, all teeth extracted NECK: Supple, no masses, trachea midline CV: RRR, without murmur, rub, gallop, no JVD. RESP: lungs upper lobes diminished with scattered rhonchi, no crackles, wheeze. symmetrical chest rise, nonlabored, able to speak in full sentences ABD: Soft, thin, NT, ND, no masses, positive bowel tones EXT: Pulses +1x4, no dependent edema MS: Left shoulder and scapula pain easily reproduced with light palpation and passive ROM of left arm. Normal tone x4 extremities, nontender, no obvious deformities, full range of motion NEURO: CN II through CN XII grossly intact, motor strength 5/5 PSYCH: A+O x3, pleasant affect, appropriate speech, appropriate mood, insight and judgment SKIN: Normal turgor, normal texture, no lesions, no rashes Results 04/24/18 21:09 04/24/18 21:09 Cardiac Enzymes 04/24/18 04/24/18 04/25/18 Range/Units 21:09 21:09 01:20 AST 15 (15-37) U/L Troponin I Less than 0.02 L Less than 0.02 L (0.02-0.05) ng/mL B-Natriuretic Peptide 84 (0-100) pg/mL 04/25/18 Range/Units 05:00 AST (15-37) U/L Troponin I Less than 0.02 L (0.02-0.05) ng/mL B-Natriuretic Peptide (0-100) pg/mL Coagulation 04/24/18 04/24/18 Range/Units 21:09 21:09 PT 10.4 (9.8-11.6) sec APTT 26.4 (24.3-30.1) sec B-Natriuretic Peptide 84 (0-100) pg/mL CBC 04/24/18 Range/Units 21:09 WBC 7.0 (4.0-11.0) th/mm3 RBC 3.66 L (4.00-5.30) mil/mm3 Hgb 9.9 L (11.6-15.3) gm/dL Hct 31.0 L (35.0-46.0) % Plt Count 429 (150-450) th/mm3 Neut # (Auto) 3.3 (1.8-7.7) th/mm3 Lymph # (Auto) 2.6 (1.0-4.8) th/mm3 [place] # (Auto) 0.8 (0.0-0.9) th/mm3 Eos # (Auto) 0.2 (0.0-0.4) th/mm3 Baso # (Auto) 0.1 (0.0-0.2) th/mm3 Comprehensive Metabolic Panel 04/24/18 Range/Units 21:09 Sodium 142 (136-145) meq/L Potassium 3.4 L (3.5-5.1) meq/L Chloride 109 H (98-107) meq/L Carbon Dioxide 27.4 (21.0-32.0) meq/L BUN 13 (7-18) mg/dL Creatinine 0.84 (0.50-1.00) mg/dL Calcium 8.8 (8.5-10.1) mg/dL AST 15 (15-37) U/L ALT 8 L (10-53) U/L Alkaline Phosphatase 144 H (45-117) U/L Total Protein 7.9 (6.4-8.2) g/dL Albumin 3.3 L (3.4-5.0) g/dL Intake and Output 04/24/18 04/25/18 04/25/18 22:59 06:59 14:59 Intake Total 850 / 850 Balance 850 / 850 Intake: IV 850 / 850 Azithromycin Inj 500 MG In NS 250 / 250 Inj 250 ML @ 250 mls/hr IV.SIG ONCE ONE Rx#:[id number] NS Inj 500 ML @ Wide Open IV. 500 / 500 SIG BOLUS ONE Rx#:[id number] Rocephin Inj 1,000 MG In NS Inj 100 / 100 100 ML @ 200 mls/hr IV.SIG ONCE ONE Rx#:[id number] Other: Weight 41.787 kg EKG interpretations - EKG EKG results cardiology: sinus rhythm, normal axis (NSR, normal axis, diffuse minimum st depression, nonspecific t wave change) Caprini VTE Risk Assessment Caprini VTE Risk Assessment: Moderate/High Risk (score >= 2) Caprini Risk Assessment Model: Point Value = 1 Point Value = 2 Point Value = 3 Point Value = 5 Age 41-60 Minor surgery BMI > 25 kg/m2 Swollen legs Varicose veins or History of unexplained or recurrent spontaneous Oral contraceptives or hormone replacement Sepsis (< 1 month) Serious lung disease, including pneumonia (< 1 month) Abnormal pulmonary function Acute myocardial infarction Congestive heart failure (< 1 month) History of inflammatory bowel disease Medical patient at bed rest Age 61-74 Arthroscopic surgery Major open surgery (> 45 min) Laparoscopic surgery (> 45 min) Malignancy Confined to bed (> 72 hours) Immobilizing plaster cast Central venous access Age >= 75 History of VTE Family history of VTE Factor V Leiden Prothrombin [id number] Lupus anticoagulant Anticardiolipin antibodies Elevated serum homocysteine Heparin-induced thrombocytopenia Other congenital or acquired thrombophilia Stroke (< 1 month) Elective arthroplasty Hip, pelvis, or leg fracture Acute spinal cord injury (< 1 month) Prophylaxis Regimen: Total Risk Factor Score Risk Level Prophylaxis Regimen 0-1 Low Early ambulation 2 Moderate Order ONE of the following: *Sequential Compression Device (SCD) *Heparin 5000 units SQ BID 3-4 Higher Order ONE of the following medications: *Heparin 5000 units SQ TID *Enoxaparin/Lovenox 40 mg SQ daily (WT < 150 kg, CrCl > 30 mL/min) *Enoxaparin/Lovenox 30 mg SQ daily (WT < 150 kg, CrCl > 10-29 mL/min) *Enoxaparin/Lovenox 30 mg SQ BID (WT < 150 kg, CrCl > 30 mL/min) AND/OR *Sequential Compression Device (SCD) 5 or more Highest Order ONE of the following medications: *Heparin 5000 units SQ TID (Preferred with Epidurals) *Enoxaparin/Lovenox 40 mg SQ daily (WT < 150 kg, CrCl > 30 mL/min) *Enoxaparin/Lovenox 30 mg SQ daily (WT < 150 kg, CrCl > 10-29 mL/min) *Enoxaparin/Lovenox 30 mg SQ BID (WT < 150 kg, CrCl > 30 mL/min) AND *Sequential Compression Device (SCD) Assessment and Plan - Assessment (1) Dyspnea, unspecified Code(s): R06.00 - Dyspnea, unspecified Status: Acute Plan: Admitted to chest pain center. ACS ruled out with 3 sets of EKGs and cardiac enzymes. Seen and evaluated by Dr. Kevin Bajwa. Underlying COPD and current smoker, dyspnea likely due to acute bronchitis. Antibiotic therapy initiated in ER and home Rx azithromycin given by ER MD. Right 6mm nodule identified on CTA and also coronary calcifications. No acute physical findings and Spo2 maintained on room air. Proceed with myocardial perfusion stress testing this morning. If unremarkable discharge home with follow-up with PCP and previously prescribed antibiotics will be continued. (2) Bronchitis Code(s): J40 - Bronchitis, not specified as acute or chronic Status: Acute Plan: Rocephin and Zithromax given in ER. Blood cultures pending. Continue azithromycin RX upon discharge. (3) Tobacco use Code(s): Z72.0 - Tobacco use Status: Acute Plan: Strongly encouraged stress importance of tobacco cessation. Instructed to quit smoking. (4) Pulmonary nodule, right Code(s): R91.1 - Solitary pulmonary nodule Status: Acute Plan: Copy of report will be provided upon discharge. Instructed to follow-up with PCP for further workup as an outpatient. Verbalized understanding. H&P: Quality - VTE Deep Vein Thrombosis/Pulmonary Embolism Present on Admission: No (1) Dyspnea, unspecified Qualifiers: Dyspnea type: unspecified Qualified Code(s): R06.00 - Dyspnea, unspecified
[2018-04-25] MEDS ORDERED: Famotidine 20 MG Tablet PO SCH (09:00)
[2018-04-25] MEDS ORDERED: amLODIPine 5 MG Tablet PO SCH (09:00)
[2018-04-25] MEDS ORDERED: Morphine Inj 4 MG/ML Vial IV.PUSH ONE (09:34)
--- NOTE | 2018-04-25 10:31 | ECG ---
Date Performed: 04/24/2018 Time Performed: 20:31:06 PTAGE: 73 years EKG: Sinus rhythm POSSIBLE LEFT ATRIAL ENLARGEMENT Compared to previous tracing the patient is no longer tachycardic B ORDERLINE ECG PREVIOUS TRACING : 12/04/2013 10.35 DOCTOR: Ana Del Cid Interpretating Date/Time 04/25/2018 10:29:47
--- NOTE | 2018-04-25 11:02 | P.PNCA ---
Subjective Interval history: Patient was seen and examined in concert with nurse practitioner. Her history in essence is that of shortness of breath, she specifically denies dyspnea on exertion, a chronic cough fever diminished appetite and diarrhea and weight loss. She has a long history of smoking and workup at the time I saw her already reveals a 6 mm lung lesion. We will evaluate her for underlying ischemia and for her fever but the overlying problem is the need for ongoing evaluation and possible treatment for the lung lesion. Physical Exam Vital signs: Vital Signs 04/24/18 19:42 04/24/18 20:49 04/24/18 20:50 Temperature 98.8 F Pulse Rate 81 73 68 Respiratory Rate 24 18 18 Blood Pressure 161/84 H 161/96 H Pulse Oximetry 96 97 97 04/24/18 23:11 04/25/18 00:20 04/25/18 03:50 Temperature 98.6 F Pulse Rate 77 65 62 Respiratory Rate 18 18 16 Blood Pressure 177/94 H 169/90 H 150/70 H Pulse Oximetry 99 98 96 04/25/18 07:46 04/25/18 08:33 Temperature 97.7 F Pulse Rate 63 61 Respiratory Rate 20 Blood Pressure 148/72 H Pulse Oximetry 96 Intake & Output 04/24/18 04/25/18 04/25/18 18:59 06:59 18:59 Intake Total 850 / 850 Balance 850 / 850 Weight 41.787 kg Intake: IV 850 / 850 Azithromycin Inj 500 MG In NS 250 / 250 Inj 250 ML @ 250 mls/hr IV.SIG ONCE ONE Rx#:[id number] NS Inj 500 ML @ Wide Open IV. 500 / 500 SIG BOLUS ONE Rx#:[id number] Rocephin Inj 1,000 MG In NS Inj 100 / 100 100 ML @ 200 mls/hr IV.SIG ONCE ONE Rx#:[id number] Narrative: Frail but pleasant lady in no acute distress Head normocephalic atraumatic Eyes PERRLA EOMI sclera muddy but no injection Mouth mucous membranes moist tongue well papillated partial plates in place Neck is thin no JVD carotids are intact with no bruits. There is a question of a small node in the right sternocleidomastoid area Chest thin breath sounds diminished but no rales wheezes or rhonchi Cardiovascular regular sinus rhythm with no gallop rub or murmur Abdomen thin scaphoid no guarding or rebound no hepatosplenomegaly Extremities no clubbing cyanosis or edema Assessment and Plan - Plan This lady was admitted to the chest pain center because of dyspnea on exertion. However the patient specifically denies dyspnea on exertion although she is short of breath. She has underlying COPD and long-standing cigarette abuse and now a 6 mm lesion in the right lung. She does show calcium in the distribution of her coronary vessels so coronary artery disease as a possible consideration but clearly not related to her current problem. She will be evaluated and ruled out but will be discharged with instructions in regards to the need to seek ongoing outpatient evaluation and care for her lung lesion - Attending Attestation Documentation evaluation and care is appropriate for the patient's current presentation
[2018-04-25] MEDS ORDERED: Regadenoson Inj 0.4 MG/5 ML Syringe IV.PUSH ONE (11:34)
[2018-04-25 12:59] VITALS: BP 162/74; PULSE 70; RESP 16; TEMP 98.5; O2SAT 93
--- NOTE | 2018-04-25 14:08 | NM ---
EXAM DATE: 04/25/2018 1:03 PM EDT AGE/SEX: 73 years / Female INDICATIONS:Angina. . Substernal chest pain. CLINICAL DATA: This is the patient's initial encounter. Patient reports that signs and symptoms have been present for 1 day and indicates a pain score of 5/10. MEDICAL/SURGICAL HISTORY: Hypertension. Chronic obstructive pulmonary disease. Hysterectomy. COMPARISON: No prior exams available for comparison. DOSE: 8.7 mCi Tc 99m Myoview at rest 27.3 mCi [id number] at stress 0.4 mg Lexiscan STRESS SYMPTOMS: Nausea. Dyspnea. EJECTION FRACTION: 68 % TECHNIQUE: The patient underwent pharmacologic stress with infusion of prescribed dose. Continuous ECG tracing was monitored during stress. Gated SPECT imaging was performed after stress and conventi onal SPECT imaging was performed at rest. The examination was performed on a SPECT/CT scanner, both attenuation and non-corrected datasets were reviewed. FINDINGS: Distribution: The maximum perfused segment at stress is in the anterolateral wall. Perfusion Study: The pattern of perfusion at stress is within normal limits. Gated Study: There are intact wall motion and wall thickening without hypokinetic or dyskinetic segm ents. The ejection fraction is calculated at 68%. RISK CATEGORY: Low (<1% Annual Motality Rate) CONCLUSION: Cardiomegaly. No acute cardiopulmonary disease. Electronically signed by: Florentin Hammer MD 04/25/2018 2:06 PM EDT
--- NOTE | 2018-04-25 17:13 | ECG ---
Date Performed: 04/25/2018 Time Performed: 03:47:27 PTAGE: 73 years EKG: Sinus rhythm WITH SINUS ARRHYTHMIA POSSIBLE LEFT ATRIAL ENLARGEMENT NONSPECIFIC T-WAVE ABNORMALITY BORDERLINE ECG Since the PREVIOUS TRACING , no significant change noted PREVIOUS TRACIN04/24/2018 20.31 DOCTOR: Ana Del Cid Interpretating Date/Time 04/25/2018 17:11:19
--- NOTE | 2018-04-25 17:14 | ECG ---
Date Performed: 04/25/2018 Time Performed: 01:40:47 PTAGE: 73 years EKG: Sinus rhythm WITH SINUS ARRHYTHMIA POSSIBLE LEFT ATRIAL ENLARGEMENT MINIMAL ST DEPRESSION BORDERLINE ECG Since e PREVIOUS TRACING , no significant change noted DOCTOR: Ana Del Cid Interpretating Date/Time 04/25/2018 17:12:42
--- NOTE | 2018-04-26 10:52 | TR ---
Date Performed: 04/25/2018 Time Performed: 11:23:50 DOCTOR: Adan Sparrow DRUG LIST: CLINICAL HISTORY: REASON FOR TEST: REASON FOR ENDING: OBSERVATION: CONCLUSION: COMMENTS: Lexiscan stress test was performed under standard four minute protocol. Radionuclide was injected one minute prior to ending the test. No electrocardiographic abormalities were present t o suggest ischemia. Nuclear imaging and interpretation are pending.
== END 2018-04-25 15:32 | disposition home or self-care (01) ==
LOC: EDBD → NEPE 19:12 → NEPGCP 19:12 → NEDA 19:12 → NEPGCP 04-25 01:42
PROVIDERS: ADMIT Internal Medicine Interventional Cardiology; ATTEND Internal Medicine Interventional Cardiology